=== PATIENT | male | born 1965 | race Two or more races ===

== ENCOUNTER 2023-05-29 23:40 | Inpatient (IN) | payer OTHER, SELFPAY ==
[2023-05-29 20:19] VITALS: BMI 25.3
[2023-05-29 20:21] VITALS: BP 133/87
[2023-05-29 20:39] LABS: % Basophils 0.6 % (0-2); % Eosinophils 1.4 % (0-6); % Immature Granulocytes 0.4 % (0-0.5); % Lymphocytes 17.5 % (20.5-51.1); % Monocytes 9.6 % (1.7-9.3); % Neutrophils 70.5 % (42.2-75.2); Absolute Basophils 0.1 10^3/uL (0-0.2); Absolute Eosinophils 0.2 10^3/uL (0-0.7); Absolute Immature Granulocytes 0.1 10^3/uL (0-0.05); Absolute Lymphocytes 2.4 10^3/uL (1.2-3.4); Absolute Monocytes 1.3 10^3/uL (0.1-0.6); Absolute Neutrophils 9.8 10^3/uL (1.4-6.5); Hematocrit 46.3 % (39.0-52.0); Hemoglobin 15.5 g/dL (13.0-18.0); Mean Corp Hgb Conc. 33.5 g/dL (33.0-37.0); Mean Corpuscular Hgb 31.6 pg (27.0-31.0); Mean Corpuscular Volume 94.5 fL (80.0-94.0); Nucleated Red Blood Cells % 0 % (-); Platelet Count 270 10^3/uL (130-400); Red Cell Dist. Width 12.9 % (11.5-14.5); Urine Albumin Trace (Neg - Trace); Urine Bilirubin Negative (Negative); Urine Character Clear (Clear); Urine Color Yellow; Urine Glucose Negative (Negative); Urine Ketone 1+ (Negative); Urine Leukocyte 2+ (Negative); Urine Nitrite Negative (Negative); Urine Occult Blood 3+ (Negative); Urine Specific Gravity 1.015 (<1.030); Urine Urobilinogen Negative (Neg - 1+); White Blood Cell Count 13.9 10^3/uL (4.8-10.8)
[2023-05-29 20:49] LABS: Urine Bacteria Few (Negative); Urine Red Blood Cell 16-20 /HPF (0-2); Urine Squamous Cell 0-2 /LPF (Few)
[2023-05-29 20:54] LABS: ALT (SGPT) 21 U/L (0-50); AST (SGOT) 30 U/L (17-59); Alkaline Phosphatase 74 U/L (38-126); Blood Urea Nitrogen 20 mg/dl (9-20); Calcium 9.8 mg/dl (8.4-10.2); Carbon Dioxide 27 mmol/L (22-30); Chloride 95 mmol/L (98-107); Glucose 107 mg/dl (70-99); Sodium 133 mmol/L (135-145); Total Bilirubin 1.7 mg/dl (0.2-1.3); Total Protein 8.8 g/dl (6.3-8.2); eGFR 46.15
--- NOTE | 2023-05-29 21:19 | ED.GENMED ---
History of Present Illness
General
Chief Complaint: Abdominal Pain
Source: patient and family (Niece)
Exam Limitations: other (Slight language barrier)
Time Seen by Provider: 05/29/23 20:41
Travel History
Have you had any contact with someone who has COVID-19?: No
Do you have any symptoms of coronavirus? Fever > 100 degrees, chills, cough, shortness of breath, sore throat, loss of taste or smell, muscle aches, or headache?: No
History of Present Illness
History of Present Illness:
This is a 58 year old male that comes in with c/o abd pain. Niece states that on Saturday he eat [employer] and he started with pain. States that he has not had a BM since this time. States that he has not eaten any food and he has only drank
water. states that he did try prune juice and MOM but no results. States that he is nauseated and has vomited. Patient did go to Urgent care first and was sent to the ER. Denies any fever, chills, chest pain, SOB, diarrhea, headache, dizziness,
urinary burning.
Past History
Past History
ED Past Medical History: None; Negative Asthma, HTN, Hypercholesterolemia or NIDDM
ED Past Surgical History: None
Social History
Tobacco: Smoker
Alcohol: None
Personal:
Living: with family
Review of Systems
Review of Systems
All Other Systems: ROS reviewed and negative except as documented in HPI and ROS
Constitutional: Reports no symptoms; Denies fever or chills
EENT: Reports no symptoms
Respiratory: Reports no symptoms; Denies cough or trouble breathing
Cardiac: Reports no symptoms; Denies chest pain
ABD/GI: Reports abdominal pain, nausea and vomiting; Denies diarrhea
: Reports no symptoms; Denies dysuria, frequency or urgency
Musculoskeletal: Reports no symptoms
Skin: Reports no symptoms
Neurological: Reports no symptoms; Denies dizzy or headache
Psychiatric: Reports no symptoms
Phy Exam
General Physical Exam
General Presentation: mild distress
General age: appears stated age
General Skin: warm and dry
General Habitus: normal
General Mental: alert
General Hydration: dry mucous membranes
ENT Exam
ENT Exam: TM's normal, pharynx normal and neck supple
Eye Exam
Eye Exam: EOMI
Cardiovascular Exam
Cardiovascular Exam: regular rate/rhythm, no edema, no murmur and normal peripheral pulses
Pulmonary Exam
Pulmonary Exam: lungs clear, no respiratory distress, no rales, chest non tender, no crackles, no rhonchi, no wheezing and no cough
Gastrointestinal Exam
Gastrointestinal Exam: normal bowel sounds, soft, no organomegaly, no pulsatile mass, non distended and tender (Left sided abd mid abd tenderness with palpation)
Musculoskeletal Exam
Musculoskeletal Exam: full ROM and no edema
Skin Exam
Skin Exam: normal color, warm/dry, no rash and no petechia
Psychiatric Exam
Psychiatric Exam: normal mood/affect
Course
Orders/Labs/Results
Orders:
Orders
05/29/23 20:31
Complete Blood Count/With Diff Urgent
Comprehensive Metabolic Panel Urgent
Urinalysis Reflex To Culture Urgent
Date Specimen was Collected: 05/29/23
Time Specimen was Collected: 20:23
Urine Microscopic Reflex Cult Urgent
Urine Culture Urgent
JEANETTE Source: U
Specimen Description:
Date Specimen was Collected: 05/29/23
Time Specimen was Collected: 20:23
05/29/23 21:17
0.9% Sodium Chloride 1000 ml [Nss] 1,000 ml IV BOLUS
Ketorolac [Toradol] 30 mg IV NOW STA
05/29/23 21:18
CT Abd/pelvis W Iv Cont Urgent
Comment:
Reason For Exam: left sided and mid abd pain
05/29/23 23:26
Tamsulosin [Flomax] 0.4 mg PO NOW STA
05/29/23 23:32
CefTRIAXone [Rocephin] 1,000 mg IV NOW STA
05/29/23 23:35
Consult Urology [UROLOGY CONSULT] Urgent
Consulting Provider: Cristhian Gilbert
Was physician already notified: Yes
05/29/23 23:37
Lactic Acid Urgent
05/29/23 23:40
Admit/Transfer Patient As Directed
Co-Sign Provider:
Level of Care: Inpatient admission
Assign to:: Medical/Surgical
Physician / Group: sejal castellanos
Diagnosis: obstructing L ureteral calc w/ mod hydro
Reason for Hospitalization: obstructing L ureteral calc w/ mod hydro
Expected length of stay greater than two midnights?: Yes
ELOS- Estimated Length of Stay in days: 3
I certify the patient meets the requirements for IP care: Yes
Code Status As Directed
Resuscitation Status: Full Code
05/30/23 01:21
0.9% Sodium Chloride 1000 ml [Nss] 1,000 ml IV 100 mls/hr
HYDROmorphone [Dilaudid] 0.5 mg IV Q4HPRN PRN
HYDROmorphone [Dilaudid] 1 mg IV Q4HPRN PRN
Ondansetron Injectable [Zofran] 4 mg IV Q6HPRN PRN
05/30/23 01:21
Activity As Directed
Activity Level: As Tolerated
Intake/ Output As Directed
Frequency: Per unit guidelines
Pneumatic Compression Sleeves As Directed
Type: Knee high
Vital Signs As Directed
Frequency: Per unit guidelines
Ot Eval And Treat Routine
Pt Eval And Treat Routine
Activity Level: As Tolerated
DX Deep Vein Thrombosis Video Routine
05/30/23 Breakfast
NPO
Allow oral meds: Yes
Allow clear liquids: No
NPO with Ice Chips: No
Complete Blood Count/With Diff IN AM
Comprehensive Metabolic Panel IN AM
05/30/23 08:00
Tamsulosin [Flomax] 0.4 mg PO DAILY
05/31/23 06:00
Complete Blood Count/With Diff IN AM
Comprehensive Metabolic Panel IN AM
06/01/23 06:00
Complete Blood Count/With Diff IN AM
Comprehensive Metabolic Panel IN AM
Abnormal Lab Results
05/29/23
20:31
WBC 13.9 H 10^3/uL
(4.8-10.8)
MCV 94.5 H fL
(80.0-94.0)
MCH 31.6 H pg
(27.0-31.0)
Abs Immat Gran (auto) 0.1 H 10^3/uL
(0-0.05)
Absolute Neuts (auto) 9.8 H 10^3/uL
(1.4-6.5)
Absolute Monos (auto) 1.3 H 10^3/uL
(0.1-0.6)
Lymphocytes % 17.5 L %
(20.5-51.1)
Monocytes % 9.6 H %
(1.7-9.3)
Sodium 133 L mmol/L
(135-145)
Chloride 95 L mmol/L
(98-107)
Creatinine 1.7 H mg/dL
(0.7-1.3)
Glucose 107 H mg/dl
(70-99)
Total Bilirubin 1.7 H mg/dl
(0.2-1.3)
Total Protein 8.8 H g/dl
(6.3-8.2)
Urine Ketones 1+ A
(Negative)
Ur Occult Blood Reflex 3+ A
(Negative)
Leukocyte Esterase Rfl 2+ A
(Negative)
Urine RBC 16-20 A /HPF
(0-2)
Urine WBC (Reflex) 11-15 A /HPF
(0-5)
Urine Bacteria (Reflex) Few A
(Negative)
05/29/23 20:31
05/29/23 20:31
Leukocytosis, Sodium slightly low,Chloride low, Cr mildly elevated. Total protein elevation. Urine positive or infection. lactic acid normal at 0.7
Vital Signs
Initial and Last Documented VS:
Initial Vital Signs
Temp Pulse Resp BP Pulse Ox
98.4 F 91 16 133/87 98
05/29/23 20:21 05/29/23 20:21 05/29/23 20:21 05/29/23 20:21 05/29/23 20:21
Last Documented Vital Signs
Temp Pulse Resp BP Pulse Ox
98.2 F 91 16 115/77 97
05/30/23 00:00 05/29/23 20:21 05/29/23 20:21 05/30/23 01:00 05/30/23 01:30
MDM/Problems Addressed
Differential Diagnosis Includes:
Constipation, Diverticulitis. Bowel obstruction.
MDM/Problems Addressed:
This is a 58 year old male that comes in with c/o abd pain. States that this started on Saturday after he eat [employer]. Patient has not been able to eat and has not had a BM since that time.
Will get labs and CT scan. Give IV fluids and Medicate for pain .
Back into see patient. Via the language line explained to patient that he had a left mid ureter renal calculus and a urinary tract infection. There is some constipation but this is not causing his pain. There is also a large right kidney stone but
this will not cause pain unless it starts to move. Will admit patient and place give IV antibiotis, Flomax and place Urologist on Consult. Hospitalist notified.
Chronic conditions affecting care:
NA
Acute Exacerbation and/or Progression of Chronic Illness:
NA
*Radiology
Radiology exam reviewed: radiology read reviewed (CT-Moderate acute left Hydroureteronephrosis secondary to a 3.4mm obstructing calculus in the left mid ureter. Tiny nonobstructing left intrarenal calculi. Large 3.0cm partially obstructing staghorn
calculus in the right renal pelvis and multiple nonobstructing right lower pole intrarenal calculi. ) and all reviewed NAD by ED Provider (CT cont- Moderate chronic right hydronephrosis. Large amount of fecal material throughout the proximal colon
consistent with severe constipation. Small hiatal hernia. Mild diffuse hepatic steatosis)
*Pulse Oximetry
Patient hypoxic: no
*EKG
Interpreted by ED Provider?: NA
Rate: EKG- N/A
*[place] Closer Interpretation
Rate: [place]row Closer- N/A
*Critical Care Note
Total Time (30-74mins, 75-104mins- exclusive of procedures): Not Applicable
ED Attending Note
-
Portions of this chart may have been created with voice recognition software.� Occasional wrong word or��sound alike� substitutions may have occurred due to the inherent limitations of voice recognition software.
Discharge Plan
Departure
Patient Disposition: Admit
Date of Disposition: 05/29/23
Time of Disposition: 23:38
Admit to: Med/Surg
Presentation/result/management discussed w/ accepting MD/DO: Hospitalist
Patient with high blood pressure during this ER visit?: Yes
Condition: Good
Discharge Problem:
Renal calculus, left, Acute UTI (urinary tract infection)
Interventions
Interventions:
*Risk Screen - Suicide Last Done: 05/29/23 20:21
*General Assessment Last Done: 05/29/23 20:21
*Neglect/Abuse Screening Last Done: 05/29/23 21:35
ED- Fall Risk Assessment Last Done: 05/29/23 21:35
*ED COVID-19 Vaccine History Last Done: 05/29/23 20:21
ZZ-Gjprsl-Oxwobtjmov Assessment Last Done: 05/30/23 00:41
[2023-05-29] MEDS: NSS 1000 IV (21:32)
[2023-05-29] MEDS: TORADOL 30 MG IV (21:32)
[2023-05-29 21:34] VITALS: BP 157/136
[2023-05-29 22:00] VITALS: BP 141/60
--- NOTE | 2023-05-29 23:45 | HPS.HSE ---
Family Physician
-
Family Physician: * NONE
Chief Complaint
-
abd pain
History of Present Illness
HPI from Virtual health information manager
58M Stateless only speaker, no significant PMH with acute onset of abdominal pain. He felt constipation. Poor appetite and just taking fluid.
Today, onset of nausea and vomiting. [place] [facility] [place].
Denies any fever, chills
Medical History
Past Medical History
Past Medical History: Reports None
Past Surgical History: Reports None
Social History
Tobacco: Smoker
Alcohol: None
Personal:
Living: With Family
Family History
Family History: Not pertinent
Allergies / Home Medications
Allergies reflects when Allergies were last updated in We.
Home Medications with original date entered in We
Allergy/Medication List:
Allergies
Allergy/AdvReac Type Severity Reaction Status Date / Time
No Known Allergies Allergy Unverified 05/29/23 20:21
Home Medications
No Meds [No Current Medications] 05/29/23
Review of Systems
-
Constitutional: Reports No Symptoms
EENT: Reports No Symptoms
Respiratory: Reports No Symptoms
Cardiac: Reports No Symptoms
Abdomen/GI: Reports No Symptoms
: Reports See HPI
Musculoskeletal: Reports No Symptoms
Skin: Reports No Symptoms
Neurological: Reports No Symptoms
Endocrine: Reports No Symptoms
Hematologic/Lymphatic: Reports No Symptoms
Psych: Reports No Symptoms
Physical Exam
Vital Signs
Vital Signs
Temp Pulse Resp BP Pulse Ox
98.4 F 91 16 141/60 97
05/29/23 20:21 05/29/23 20:21 05/29/23 20:21 05/29/23 22:00 05/29/23 22:45
Physical Exam
General: Well Developed and Appears in Distress (mild )
HEENT: Anicteric
Respiratory: Clear
Cardiac: S1/S2 and Regular Rhythm
GI: Soft
Genito-urinary: Other (Left sided abd mid abd tenderness )
Musculoskeletal: No Edema
Neuro: AO x 3 and Nonfocal/grossly intact
Laboratory Results
-
05/29/23 20:31
05/29/23 20:31
Laboratory Results
Total Bilirubin 1.7 mg/dl (0.2-1.3) H 05/29/23 20:
AST 30 U/L (17-59) 05/29/23:
ALT 21 U/L (0-50) 05/29/23 20:
Alkaline Phosphatase 74 U/L (38-126) 05/29/23 20:31
Data Reviewed
-
CT Scan: Report Reviewed by me
Lab Data: Labs Reviewed by me
Impression/Plan
-
Data
WCC 13.9
Na 133 K 5 Cl 95
Cr 1.7 - no prior data
e GFR 46
TB 1.7
UA : RBC 16- 20 WCC 11-[address] AP
-Moderate acute left Hydroureteronephrosis secondary to a 3.4mm obstructing calculus in the left mid ureter. Tiny nonobstructing left intrarenal calculi. Large 3.0cm partially obstructing staghorn calculus in the right renal pelvis and multiple
nonobstructing right lower pole intrarenal calculi. ) and all reviewed NAD by ED Provider (CT cont- Moderate chronic right hydronephrosis. Large amount of fecal material throughout the proximal colon consistent with severe constipation. Small hiatal
hernia. Mild diffuse hepatic steatosis)
No prior hospitalist admission
ASSESSMENT & PLAN
Moderate acute left Hydroureteronephrosis secondary to a 3.4mm obstructing calculus in the left mid ureter.
Tiny nonobstructing left intrarenal calculi.
Large 3.0cm partially obstructing staghorn calculus in the right renal pelvis
Multiple nonobstructing right lower pole intrarenal calculi
- UA is equivocal for UTI nevertheless mulple stones and hi WCC - agree with IV CFTX
- NPO and IVF
- cont Flomax
- Narcotic analgesia PRN
- Uro consulted
DONNA suspect obstructive
- trend Cr
DVT Px: SCD
Full code
IP MS
[2023-05-29] MEDS: FLOMAX 0.400000000000000022 MG PO (23:51)
[2023-05-29] MEDS: ROCEPHIN 1000 MG IV (23:51)
[2023-05-30] VITALS (8 sets, daily range): BP systolic 105–144; BP diastolic 59–77; PULSE 86; O2SAT 98; BMI 25.0
[2023-05-30 00:24] LABS: Lactic Acid 0.7 mmol/L (0.7-2.0)
[2023-05-30] MEDS: NSS 1000 IV ×3 (03:00→21:42)
[2023-05-30 06:56] LABS: % Basophils 1.2 % (0-2); % Eosinophils 2.3 % (0-6); % Immature Granulocytes 0.4 % (0-0.5); % Lymphocytes 20.7 % (20.5-51.1); % Monocytes 10.7 % (1.7-9.3); % Neutrophils 64.7 % (42.2-75.2); Absolute Basophils 0.1 10^3/uL (0-0.2); Absolute Eosinophils 0.2 10^3/uL (0-0.7); Absolute Lymphocytes 2.1 10^3/uL (1.2-3.4); Absolute Monocytes 1.1 10^3/uL (0.1-0.6); Absolute Neutrophils 6.6 10^3/uL (1.4-6.5); Hematocrit 38.7 % (39.0-52.0); Mean Corp Hgb Conc. 33.6 g/dL (33.0-37.0); Mean Corpuscular Hgb 31.6 pg (27.0-31.0); Mean Corpuscular Volume 94.2 fL (80.0-94.0); Mean Platelet Volume 9.6 fL (7.4-10.4); Nucleated Red Blood Cells % 0 % (-); Platelet Count 259 10^3/uL (130-400); Red Blood Cell Count 4.11 10^6/uL (4.70-6.10); Red Cell Dist. Width 12.8 % (11.5-14.5); White Blood Cell Count 10.2 10^3/uL (4.8-10.8)
[2023-05-30 07:27] LABS: ALT (SGPT) 16 U/L (0-50); AST (SGOT) 26 U/L (17-59); Albumin 3.7 g/dl (3.5-5.0); Alkaline Phosphatase 69 U/L (38-126); Blood Urea Nitrogen 19 mg/dl (9-20); Calcium 8.2 mg/dl (8.4-10.2); Carbon Dioxide 21 mmol/L (22-30); Chloride 104 mmol/L (98-107); Estimated Creatinine Clearance 55 ml/min; Glucose 89 mg/dl (70-99); Potassium 4.4 mmol/L (3.5-5.1); Sodium 132 mmol/L (135-145); Total Bilirubin 1.4 mg/dl (0.2-1.3); Total Protein 6.6 g/dl (6.3-8.2); eGFR 46.15
[2023-05-30] MEDS: FLOMAX 0.400000000000000022 MG PO (07:41)
--- NOTE | 2023-05-30 10:01 | PTOTSP ---
Patient demonstrates safe and independent mobility, no skilled physical therapy needs at this time.
--- NOTE | 2023-05-30 10:02 | PTOTSP ---
pt currently requires no assistance to complete simple ADLs, functional transfers, ambulation. no acute OT needs identified at this time, will sign off.
--- NOTE | 2023-05-30 10:21 | W.PN.URO.CBU ---
Today's Communication / Plan
-
Admit for observation
May resume diet
If no fever or significant renal colic overnight would discharge home tomorrow fr continued trial of stone passage
Will need right staghorn stone addressed at a future date
---
Discussed with Hospitalist
Assessment / Plan
-
Partially obstructing left mid-ureteral stone
Large right staghorn stone/stone burden
Diagnosis
-
Date of Service: May 30, 2023
-
Patient Diagnosis:
Partially obstructing 3.5 mm left mid-ureteral stone
Large right partial staghorn calculus with additional lower pole calyx stones: CT personally reviewed
Concern for possible UTI
---
Patient presently afebrile and pain free
Denies any prior history of kidney stones/stone events
Subjective
-
Comfortable
Objective
-
Vital Signs
Temp Pulse Resp BP Pulse Ox
98 F 80 16 126/72 99
05/30/23 07:40 05/30/23 07:40 05/30/23 07:40 05/30/23 07:40 05/30/23 07:40
Laboratory Results
05/30/23 06:05
05/30/23 06:05
Review of Systems
-
Constitutional: No Symptoms
Respiratory: No Symptoms
Cardiac: No Symptoms
Abdomen/GI: No Symptoms
: No Symptoms
Neurological: No Symptoms
Physical Exam
-
General - well developed, well nourished, no acute distress
Abdomen - soft, non-tender, no CVAT
--- NOTE | 2023-05-30 11:55 | W.PN.HOSP.TC ---
Today's Communication/Plan
-
Started on diet
Follow-up for any recurrence of renal colic.
Follow creatinine.
Follow urine culture data
Assessment / Plan
Assessment / Plan
Moderate acute left Hydroureteronephrosis secondary to a 3.4mm obstructing calculus in the left mid ureter.
Tiny nonobstructing left intrarenal calculi.
Large 3.0cm partially obstructing staghorn calculus in the right renal pelvis
Multiple nonobstructing right lower pole intrarenal calculi
Patient today better without abdominal pain. No GI symptoms.
Urology input noted-recommend observation.No plan for OR.
- UA is equivocal for UTI nevertheless mulple stones and hi WCC -� cw IV CFTX pending cx data
- cont Flomax
- Narcotic analgesia PRN
DONNA suspect obstructive
- trend Cr
Hyponatremia - Euvolemic . Check urine lytes. Follow for now
DVT Px: SCD
Full code
IP MS
Anticipated Discharge: Within 24 hours
Subjective/Interval History
-
Date of Service: May 30, 2023
Romansh-speaking but can manage in [place].
He states no abdominal pain now. No nausea or vomiting. Hungry, would like to have a diet ordered.
Objective Data
-
Labs:
Laboratory Results
05/30/23
06:05
WBC 10.2
Hgb 13.0
Hct 38.7 L
Plt Count 259
Sodium 132 L
Potassium 4.4
Chloride 104
Carbon Dioxide 21 L
BUN 19
Creatinine 1.7 H
Glucose 89
Calcium 8.2 L D
Total Bilirubin 1.4 H
AST 26
ALT 16
Alkaline Phosphatase 69
Vital Signs:
Vital Signs
Temp Pulse Resp BP Pulse Ox
98 F 80 16 126/72 99
05/30/23 07:40 05/30/23 07:40 05/30/23 07:40 05/30/23 07:40 05/30/23 07:40
Review of Systems
-
Constitutional: Denies Fever
Respiratory: Denies Trouble Breathing
Cardiac: Denies Chest Pain
Neuro: Denies Dizzy
Physical Exam
-
General: No Apparent Distress
HEENT: Moist Mucous Membranes
Respiratory: Clear to Auscultation
Cardiac: Regular Rhythm and S1/S2
GI: Soft, Nontender, Nondistended and Normal Bowel Sounds
Genito-urinary: No Costovertebral Tender
Neuro: AO x 3
Psych: Calm
Data Reviewed
-
Labs: Labs Reviewed by me
[2023-05-30 13:10] LABS: Osmolality Urine 760 mOsm/kg (300-900)
[2023-05-30 13:24] LABS: Urine Sodium 52 mmol/L (30-90)
--- NOTE | 2023-05-30 17:39 | PTCARENOTE ---
Pt arrived to [facility] from ED for L ureteral stone. Pt assessment completed, IVF infusing. Pt states no pain at this time. Pt oriented to call lugo and room, bed locked and in lowest position, call lugo within reach.
[2023-05-31] MEDS: STERILE WATER FOR INJECTION 10 ML IV (00:05)
[2023-05-31] MEDS: ROCEPHIN 1000 MG IV (00:05)
[2023-05-31 06:00] VITALS: BMI 25.0
[2023-05-31 06:34] LABS: % Basophils 1.7 % (0-2); % Eosinophils 3.4 % (0-6); % Immature Granulocytes 0.4 % (0-0.5); % Lymphocytes 29.9 % (20.5-51.1); % Monocytes 8.7 % (1.7-9.3); % Neutrophils 55.9 % (42.2-75.2); Absolute Basophils 0.1 10^3/uL (0-0.2); Absolute Eosinophils 0.3 10^3/uL (0-0.7); Absolute Lymphocytes 2.5 10^3/uL (1.2-3.4); Absolute Monocytes 0.7 10^3/uL (0.1-0.6); Absolute Neutrophils 4.7 10^3/uL (1.4-6.5); Hematocrit 36.5 % (39.0-52.0); Hemoglobin 12.2 g/dL (13.0-18.0); Mean Corp Hgb Conc. 33.4 g/dL (33.0-37.0); Mean Corpuscular Hgb 31.8 pg (27.0-31.0); Mean Corpuscular Volume 95.1 fL (80.0-94.0); Mean Platelet Volume 9.5 fL (7.4-10.4); Nucleated Red Blood Cells % 0 % (-); Platelet Count 246 10^3/uL (130-400); Red Blood Cell Count 3.84 10^6/uL (4.70-6.10); Red Cell Dist. Width 12.7 % (11.5-14.5); White Blood Cell Count 8.5 10^3/uL (4.8-10.8)
[2023-05-31 06:44] LABS: ALT (SGPT) 14 U/L (0-50); AST (SGOT) 22 U/L (17-59); Albumin 3.2 g/dl (3.5-5.0); Alkaline Phosphatase 59 U/L (38-126); Blood Urea Nitrogen 19 mg/dl (9-20); Calcium 7.9 mg/dl (8.4-10.2); Carbon Dioxide 23 mmol/L (22-30); Chloride 106 mmol/L (98-107); Estimated Creatinine Clearance 72 ml/min; Glucose 89 mg/dl (70-99); Potassium 4.6 mmol/L (3.5-5.1); Sodium 133 mmol/L (135-145); Total Bilirubin 0.7 mg/dl (0.2-1.3); Total Protein 5.9 g/dl (6.3-8.2); eGFR > 60.00
[2023-05-31 08:00] VITALS: BP 126/71
--- NOTE | 2023-05-31 08:31 | W.PN.URO.CBU ---
Today's Communication / Plan
-
Cleared for discharge home for continued trial of stone passage
Advise tamsulosin 0.4mg daily
Assessment / Plan
-
Partially obstructing left mid-ureteral stone: comfortable
Large right staghorn stone/stone burden
Diagnosis
-
Date of Service: May 31, 2023
-
Patient Diagnosis:
Partially obstructing 3.5 mm left mid-ureteral stone
Large right partial staghorn calculus with additional lower pole calyx stones: CT personally reviewed
Concern for possible UTI
---
Patient presently afebrile and pain free
Denies any prior history of kidney stones/stone events
Subjective
-
Comfortable
No complaints
Objective
-
Vital Signs
Temp Pulse Resp BP Pulse Ox
97.9 F 93 14 115/59 96
05/30/23 23:00 05/30/23 23:00 05/30/23 23:00 05/30/23 23:00 05/30/23 23:00
Intake and Output
05/30/23 05/31/23 06/01/23
06:59 06:59 06:59
Intake Total 1580 / 1580
Output Total 400 / 400
Balance 1180 / 1180
Intake:
Oral fluids 480 / 480
IV fluids (Total) 1100 / 1100
Output:
Urine, Voided 400 / 400
Laboratory Results
05/31/23 05:00
05/31/23 05:00
Review of Systems
-
Respiratory: No Symptoms
Cardiac: No Symptoms
Abdomen/GI: No Symptoms
: No Symptoms
Musculoskeletal: No Symptoms
Neurological: No Symptoms
Physical Exam
-
General - well developed, well nourished, no acute distress
Abdomen - soft, non-tender, positive bowel sounds, no CVAT
Skin - warm & dry with no rash
Neuro - AOx3, no motor deficits
Counseling
-
Will follow up in office in 2 weeks
[2023-05-31] MEDS: FLOMAX 0.400000000000000022 MG PO (09:21)
[2023-05-31] MEDS: NSS IV (09:21)
--- NOTE | 2023-05-31 09:23 | W.PN.HOSP.TC ---
Today's Communication/Plan
-
DC
Assessment / Plan
Assessment / Plan
Moderate acute left Hydroureteronephrosis secondary to a 3.4mm obstructing calculus in the left mid ureter.
Tiny nonobstructing left intrarenal calculi.
Large 3.0cm partially obstructing staghorn calculus in the right renal pelvis
Multiple nonobstructing right lower pole intrarenal calculi
Remains without abdominal pain. No GI symptoms. Tolerating diet.
Urology input from today noted-okay for home discharge ;to follow trial of stone passage at home. Follow-up with urology in 2 weeks. Patient advised if any fevers or recurrence of abdominal pain to return back to ER.Flomax per uro.
- UA is equivocal for UTI -suspect sec to stone in ureter than infection
- UCX neg
- Hold further abx
DONNA suspect obstructive
- Cr normalized
Hyponatremia - Euvolemic . Improved .Suspect sec to pain
DVT Px: SCD
Full code
IP MS
Anticipated Discharge: Today
Subjective/Interval History
-
Date of Service: May 31, 2023
Resolved abdominal pain.
Tolerating diet without nausea or vomiting.
No fever or chills.
Objective Data
-
Labs:
Laboratory Results
05/31/23
05:00
WBC 8.5
Hgb 12.2 L
Hct 36.5 L
Plt Count 246
Sodium 133 L
Potassium 4.6
Chloride 106
Carbon Dioxide 23
BUN 19
Creatinine 1.3
Glucose 89
Calcium 7.9 L
Total Bilirubin 0.7
AST 22
ALT 14
Alkaline Phosphatase 59
Vital Signs:
Vital Signs
Temp Pulse Resp BP Pulse Ox
98.4 F 74 16 126/71 97
05/31/23 08:00 05/31/23 08:00 05/31/23 08:00 05/31/23 08:00 05/31/23 08:00
I&O
05/30/23 05/31/23 06/01/23
06:59 06:59 06:59
Intake Total 1580 / 1580
Output Total 400 / 400
Balance 1180 / 1180
Review of Systems
-
Unable to obtain full review of systems at this time due to: Language Barrier
Respiratory: Denies Trouble Breathing
Cardiac: Denies Chest Pain
Abdomen/GI: Denies Abdominal Pain, Nausea or Vomiting
Neuro: Denies Dizzy
Physical Exam
-
General: No Apparent Distress
HEENT: Moist Mucous Membranes
Respiratory: Clear to Auscultation
Cardiac: Regular Rhythm and S1/S2
Genito-urinary: No Costovertebral Tender
Neuro: AO x 3
Psych: Calm
Data Reviewed
-
Labs: Labs Reviewed by me
--- NOTE | 2023-05-31 09:28 | W.DS.TRANS ---
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
-
Discharge Instructions:
Discharge Diagnosis/Procedures Moderate acute left Hydroureteronephrosis
secondary to a 3.4mm obstructing calculus in the
left mid ureter.
Tiny nonobstructing left intrarenal calculi.
Large 3.0cm partially obstructing staghorn
calculus in the right renal pelvis
Multiple nonobstructing right lower pole
intrarenal calculi
DONNA suspect obstructive -resolved
Diet Regular
Activity As tolerated
Driving Restrictions As prior to admission
Instructions:
Stand-Alone Forms:
Changes to Home Medications: Yes
Discharge Medications:
DC Medications w/original date entered in [facility]
tamsulosin 0.4 mg capsule 0.4 mg PO DAILY #15 caps 05/31/23
Home Medication Changes
New medication-Flomax
Pending Results: No
--- NOTE | 2023-05-31 09:29 | W.DCSUMMARY ---
Discharge Summary
Discharge Data
Date of Admission: 05/29/23
Date of Discharge: 05/31/23
-
Pending Results: No
Hospital Course
Primary diagnosis:
Moderate acute left Hydroureteronephrosis secondary to a 3.4mm obstructing calculus in the left mid ureter.
Tiny nonobstructing left intrarenal calculi.
Large 3.0cm partially obstructing staghorn calculus in the right renal pelvis
Multiple nonobstructing right lower pole intrarenal calculi
Acute kidney injury- suspect obstructive- resolved
Secondary diagnosis:
None
Hospital course:
Presented with acute onset abdominal pain and poor appetite. He felt he may be constipated. Then he started to have nausea and vomiting so came to ER.
Evaluation here shows moderate acute left hydroureteronephrosis secondary to 3.4 mm obstructing calculus in the left mid ureter. There is also large staghorn calculus in the right renal pelvis.
His creatinine was also elevated 1.7. There was leukocytosis which was felt reactive than a UTI. Urine culture negative.
He was admitted and given the chance of spontaneous stone passage. He is abdominal pain resolved. He was tolerating diet. His creatinine came down to normal. Was seen by urology who felt the large staghorn calculus would be an issue, he might
pass the small ureteral calculus. He was advised Flomax and be discharged home for trail of stone passage at home.
To follow with urology in 2 weeks.
Consultants on board:
Urology Dr Gilbert
Discharge Plan
-
Patient Disposition: Home (Routine Discharge)
Discharge Diagnosis/Procedures: Moderate acute left Hydroureteronephrosis secondary to a 3.4mm obstructing calculus in the left mid ureter.
Tiny nonobstructing left intrarenal calculi.
Large 3.0cm partially obstructing staghorn calculus in the right renal pelvis
Multiple nonobstructing right lower pole intrarenal calculi
DONNA suspect obstructive -resolved
Diet: Regular
Activity: As tolerated
Driving Restrictions: As prior to admission
Activity Restrictions/Additional Instructions:
If any fever, chills or recurrence of abdominal pain call urology.
Referrals:
NONE,* [Family Provider] -
Cristhian Gilbert MD [Active] - in two weeks
Prescriptions:
New
tamsulosin 0.4 mg Capsule
0.4 mg PO DAILY Qty: 15 0RF
Discharge Orders:
Discharge Patient (As Directed); Ordered 05/31/23
Ordered By: Zoran Wang
--- NOTE | 2023-05-31 10:33 | CM ---
Initial assessment completed with patient who lives with his niece in a 1 story home with no steps to enter. Patient is independent, works FT as a truck mechanic apprentice, no equipment or services. Discharge plan of care: Home with no additional skilled
needs.
--- NOTE | 2023-05-31 10:35 | CM ---
Patient has been medically cleared for discharge to home with no additional skilled services. His niece will transport home.
== END 2023-05-31 10:13 | disposition home or self-care (01) | DRG 690 ==
LOC: 2 SOUTH 23:40
PROVIDERS: Clinical Nurse Specialist Family Health; Emergency Medicine; ADMITTING PHYSICIAN Internal Medicine; ATTENDING PHYSICIAN Internal Medicine; CONSULT PHYSICIAN Specialist; EMERGENCY PHYSICIAN Emergency Medicine
DX: N13.6 Pyonephrosis (principal); E87.1 Hypo-osmolality and hyponatremia; N17.9 Acute kidney failure, unspecified
CPT/HCPCS: 74177; 80053; 81003; 81015; 83605; 83935; 84300; 85025; 87086; 96361; 96374; 96375; 97165; 99285; Q9967

== ENCOUNTER 2023-08-03 19:23 | Emergency (ER) | payer SELFPAY ==
[2023-08-03 19:30] VITALS: BP 118/73
--- NOTE | 2023-08-03 20:09 | ED.GENMED ---
History of Present Illness
General
Chief Complaint: Abdominal Symptoms
Source: patient
Exam Limitations: none
Time Seen by Provider: 08/03/23 19:41
Travel History
Have you had any contact with someone who has COVID-19?: No
Do you have any symptoms of coronavirus? Fever > 100 degrees, chills, cough, shortness of breath, sore throat, loss of taste or smell, muscle aches, or headache?: No
History of Present Illness
History of Present Illness:
This is a 58 year old male that comes in with c/o abd pain. states that this started yesterday and has been constant. States that he has also not moved his bowels in 2 days. Denies any fever, chills, chest pain,SOB, nausea, vomiting, diarrhea,
headache, dizziness, urinary burning.
Past History
Past History
ED Past Medical History: None; Negative Asthma, HTN, Hypercholesterolemia or NIDDM
ED Past Surgical History: None
Social History
Tobacco: Smoker
Alcohol: None
Personal:
Living: with family
Review of Systems
Review of Systems
All Other Systems: ROS reviewed and negative except as documented in HPI and ROS
Constitutional: Reports no symptoms; Denies fever or chills
EENT: Reports no symptoms
Respiratory: Reports no symptoms; Denies cough or trouble breathing
Cardiac: Reports no symptoms; Denies chest pain
ABD/GI: Reports abdominal pain and constipated; Denies nausea, vomiting or diarrhea
: Reports no symptoms; Denies dysuria, frequency or urgency
Musculoskeletal: Reports no symptoms
Skin: Reports no symptoms
Neurological: Reports no symptoms; Denies dizzy or headache
Psychiatric: Reports no symptoms
Phy Exam
General Physical Exam
General Presentation: mild distress
General age: appears stated age
General Skin: warm and dry
General Habitus: normal
General Mental: alert
General Hydration: dry mucous membranes
ENT Exam
ENT Exam: TM's normal, pharynx normal and neck supple
Eye Exam
Eye Exam: EOMI
Cardiovascular Exam
Cardiovascular Exam: regular rate/rhythm, no edema, no murmur and normal peripheral pulses
Pulmonary Exam
Pulmonary Exam: lungs clear, no respiratory distress, no rales, no crackles, no rhonchi, no wheezing and no cough
Gastrointestinal Exam
Gastrointestinal Exam: normal bowel sounds, soft, no organomegaly, no pulsatile mass, non distended and tender (Left sided abd tenderness with palpation)
Musculoskeletal Exam
Musculoskeletal Exam: full ROM and no edema
Skin Exam
Skin Exam: normal color, warm/dry, no rash and no petechia
Psychiatric Exam
Psychiatric Exam: normal mood/affect
Course
Orders/Labs/Results
Orders:
Orders
08/03/23 20:08
0.9% Sodium Chloride 1000 ml [Nss] 1,000 ml IV BOLUS
Ketorolac [Toradol] 30 mg IV NOW STA
08/03/23 20:09
CT Abd/pelvis W Iv Cont Urgent
Comment:
Reason For Exam: left sided abd pain
08/03/23 20:19
Complete Blood Count/With Diff Urgent
Comprehensive Metabolic Panel Urgent
08/03/23 22:16
Urinalysis Reflex To Culture Urgent
Date Specimen was Collected: 08/03/23
Time Specimen was Collected: 20:40
Urine Microscopic Reflex Cult Urgent
Abnormal Lab Results
08/03/23 08/03/23
20:19 22:16
WBC 11.5 H 10^3/uL
(4.8-10.8)
RBC 4.00 L 10^6/uL
(4.70-6.10)
Hct 36.5 L %
(39.0-52.0)
MCH 32.5 H pg
(27.0-31.0)
Absolute Neuts (auto) 7.6 H 10^3/uL
(1.4-6.5)
Absolute Monos (auto) 0.9 H 10^3/uL
(0.1-0.6)
Carbon Dioxide 20 L mmol/L
(22-30)
BUN 25 H mg/dl
(9-20)
Creatinine 1.5 H mg/dL
(0.7-1.3)
Total Bilirubin 1.6 H mg/dl
(0.2-1.3)
Urine Ketones 3+ A
(Negative)
Ur Occult Blood Reflex 4+ A
(Negative)
Leukocyte Esterase Rfl Trace A
(Negative)
Urine RBC 11-15 A /HPF
(0-2)
08/03/23 20:19
08/03/23 20:19
WBC very slightly elevated. Dehydration, Renal insufficiency, . Total shannan elevated. Urine negative for infection.
Vital Signs
Initial and Last Documented VS:
Initial Vital Signs
Temp Pulse Resp BP Pulse Ox
98.2 F 98 18 118/73 98
08/03/23 19:30 08/03/23 19:30 08/03/23 19:30 08/03/23 19:30 08/03/23 19:30
Last Documented Vital Signs
Temp Pulse Resp BP Pulse Ox
98.2 F 98 18 118/73 98
08/03/23 19:30 08/03/23 19:30 08/03/23 19:30 08/03/23 19:30 08/03/23 19:30
MDM/Problems Addressed
Differential Diagnosis Includes:
Constipation, Diverticulitis,
MDM/Problems Addressed:
This is a 58 year old male that comes in with c/o left sided abd pain. States that this started yesterday and has been constant. States that he has not had a BM in 2 days.
Will get labs and Ct scan. Will give Pain medication and IV fluids
Ct cont- Renal mass protocol MRI is recommended for further assessment. Additional findings: Dependent atelectasis. colonic diverticulosis. vascular calcifications. DJD. Right peripelvic renal cyst.
back into see patient. With the language line explained to patient that he has a 3mm stone that is almost to the bladder. There is also a renal mass that will need further evaluation with MRI. Patient will be given information for the Urologist and
for the Free clinic. If his urine comes back positive for infection patient will be admitted.
Urine is negative, Will discharge home.
Chronic conditions affecting care:
NA
Acute Exacerbation and/or Progression of Chronic Illness:
NA
*Radiology
Radiology exam reviewed: radiology read reviewed (CT night hawk- 3mm onstructing calculus within the distal most left ureter, approaching the UVJ, associated with mild left hydroureteronephrosis, as well as a delayed nephrogram, in keeping with
obstructive uropathy. Left sided perinephric stranding may be related to obstructive uropathy, though) and other (CT cont- correlation with UA to asssess for superimposed infection is recommended. Mural thickening of the bladder is suspicious for
cystitis. Correlation with UA is recommended. Indeterminate intermediate density lesion arising exophytically from the left kidney, measuring 19mm, for which renal)
*Pulse Oximetry
Patient hypoxic: no
*EKG
Interpreted by ED Provider?: NA
Rate: EKG- N/A
*Roof Fitter Interpretation
Rate: Roof Fitter- N/A
*Critical Care Note
Total Time (30-74mins, 75-104mins- exclusive of procedures): Not Applicable
ED Attending Note
-
Portions of this chart may have been created with voice recognition software.� Occasional wrong word or��sound alike� substitutions may have occurred due to the inherent limitations of voice recognition software.
Discharge Plan
Departure
Patient Disposition: Home (Routine Discharge)
Date of Disposition: 08/03/23
Time of Disposition: 23:37
Patient with high blood pressure during this ER visit?: No
Condition: Good
Covid-19: Not Applicable
Discharge Problem:
Renal calculus, left
Instructions: Kidney stones in adults, How to Strain Your Urine
Prescriptions:
New
ondansetron 4 mg tablet,disintegrating
4 mg PO Q8H PRN (Reason: nausea and vomiting) Qty: 7 0RF
tamsulosin [Flomax] 0.4 mg capsule
0.4 mg PO DAILY Qty: 10 0RF
oxycodone-acetaminophen [Percocet] 5-325 mg tablet
1 tab PO Q4HPRN PRN (Reason: pain) Qty: 7 0RF
No Action
tamsulosin 0.4 mg Capsule
0.4 mg PO DAILY Qty: 15 0RF
Referrals:
[facility] [Outside]
NONE,* [Family Provider] -
Cristhian Gilbert MD [Active] - Follow up in 5-7 days
Activity Restrictions/Additional Instructions:
As discussed, you have a renal calculus that is almost to the Bladder. Please increase your water intake to 8-8oz glasses daily. You have had 3 prescription sent to the Pharmacy. Please take the Flomax as directed as this will help relax the smooth
muscle so you can pass the stone. Please strain your urine. You have also been given a prescription for Zofran that will help with any nausea/vomiting. The last Prescription is for a narcotic pain medication for severe pain. Please call the clinic
on Saturday morning and get set up for a follow up as your CT shows that there is a mass on the Kidney that will need further evaluation with an MRI. This can be ordered by the Urologist or further evaluation in the clinic. If your pain is not severe
you may use Ibuprofen 600mg every 6 hours with food. IF YOU HAVE INCREASED OR CHANGING PAIN, OR YOU HAVE ANY OTHER CONCERNS PLEASE RETURN TO THE EMERGENCY ROOM.
Interventions
Interventions:
*Risk Screen - Suicide Last Done: 08/03/23 19:30
*General Assessment Last Done: 08/03/23 19:30
*Neglect/Abuse Screening Last Done: 08/03/23 19:30
ED- Fall Risk Assessment Last Done: 08/03/23 20:25
*ED COVID-19 Vaccine History Last Done: 08/03/23 20:25
CP-Kzcsoc-Ydifmhwptu Assessment Last Done: 08/03/23 20:24
Discharge Date and Time
Print Language: GERMAN
[2023-08-03] MEDS: NSS 1000 IV (20:20)
[2023-08-03] MEDS: TORADOL 30 MG IV (20:21)
[2023-08-03 20:28] LABS: % Basophils 0.6 % (0-2); % Eosinophils 1.5 % (0-6); % Immature Granulocytes 0.3 % (0-0.5); % Lymphocytes 23.5 % (20.5-51.1); % Monocytes 8.1 % (1.7-9.3); Absolute Basophils 0.1 10^3/uL (0-0.2); Absolute Eosinophils 0.2 10^3/uL (0-0.7); Absolute Lymphocytes 2.7 10^3/uL (1.2-3.4); Absolute Monocytes 0.9 10^3/uL (0.1-0.6); Absolute Neutrophils 7.6 10^3/uL (1.4-6.5); Hematocrit 36.5 % (39.0-52.0); Mean Corp Hgb Conc. 35.6 g/dL (33.0-37.0); Mean Corpuscular Hgb 32.5 pg (27.0-31.0); Mean Corpuscular Volume 91.3 fL (80.0-94.0); Nucleated Red Blood Cells % 0 % (-); Platelet Count 241 10^3/uL (130-400); Red Cell Dist. Width 12.9 % (11.5-14.5); White Blood Cell Count 11.5 10^3/uL (4.8-10.8)
[2023-08-03 20:49] LABS: ALT (SGPT) 15 U/L (0-50); AST (SGOT) 27 U/L (17-59); Alkaline Phosphatase 71 U/L (38-126); Blood Urea Nitrogen 25 mg/dl (9-20); Carbon Dioxide 20 mmol/L (22-30); Chloride 104 mmol/L (98-107); Glucose 94 mg/dl (70-99); Potassium 4.2 mmol/L (3.5-5.1); Sodium 135 mmol/L (135-145); Total Bilirubin 1.6 mg/dl (0.2-1.3); Total Protein 7.1 g/dl (6.3-8.2); eGFR 53.63
[2023-08-03 22:38] LABS: Urine Albumin Trace (Neg - Trace); Urine Bilirubin Negative (Negative); Urine Character Clear (Clear); Urine Color Yellow; Urine Glucose Negative (Negative); Urine Ketone 3+ (Negative); Urine Leukocyte Trace (Negative); Urine Nitrite Negative (Negative); Urine Occult Blood 4+ (Negative); Urine Specific Gravity 1.015 (<1.030); Urine Urobilinogen Negative (Neg - 1+)
[2023-08-03 22:50] LABS: Urine Mucus Few
[2023-08-03 23:47] VITALS: BP 134/70
[2023-08-03] MEDS: FLOMAX 0.400000000000000022 MG PO (23:47)
== END 2023-08-03 23:59 | disposition home or self-care (01) ==
LOC: EMR 19:23
PROVIDERS: Clinical Nurse Specialist Family Health; EMERGENCY PHYSICIAN Emergency Medicine
DX: R10.9 Unspecified abdominal pain (principal); E86.0 Dehydration; F17.200 Nicotine dependence, unspecified, uncomplicated
CPT/HCPCS: 99284; 96374; 96361; 74177; 80053; 81003; 81015; 85025; Q9967